=== PATIENT | male | born 1945 | race Caucasian/White ===

== ENCOUNTER 2018-12-31 17:15 | Emergency (ER) | payer BC ==
[2018-12-31] MEDS ORDERED: ARTIFICIAL TEARS OP ONE (17:30)
[2018-12-31] MEDS ORDERED: PEG-400/PROPYLENE GLYCOL 1 DROP SOL ONE (17:37)
[2018-12-31 17:55] VITALS: TEMP 97.2
[2018-12-31 18:25] VITALS: BP 163/101; PULSE 63; RESP 16; O2SAT 97
== END 2018-12-31 18:21 | disposition home or self-care (01) | DRG 125 ==
LOC: EDSTATUS 17:15 → ED 17:15
DX: H53.8 Other visual disturbances (principal); E11.9 Type 2 diabetes mellitus without complications
CPT/HCPCS: 99282; 99283; A9270-GY